=== PATIENT | male | born 1985 | race Caucasian/White ===

== ENCOUNTER 2019-11-02 01:51 | Emergency (ER) | payer SELFPAY | END 2019-11-02 03:54 | disposition home or self-care (01) | LOC: MED 01:51 | DX: R07.9 Chest pain, unspecified (principal) | CPT/HCPCS: 99283 ==

== ENCOUNTER 2021-10-09 23:55 | Emergency (ER) | payer SELFPAY ==
[~2021-10-09] VITALS: Ht 185.4 cm; Wt 116.1 kg
[2021-10-10 00:01] VITALS: BP 165/90
--- NOTE | 2021-10-10 00:06 | NUR ---
PATIENT LOBBY AMBULATORY
[2021-10-10 00:25] VITALS: BP 165/90
--- NOTE | 2021-10-10 00:26 | NUR ---
Patient discharged with v/s stable. Written and verbal after care instructions given and explained. Patient verbalized understanding. Ambulatory with steady gait. All questions addressed prior to discharge. Advised to follow up with PMD.
== END 2021-10-10 00:26 | disposition home or self-care (01) ==
LOC: MED 23:55
DX: F41.9 Anxiety disorder, unspecified (principal); R20.2 Paresthesia of skin; R06.02 Shortness of breath; R07.9 Chest pain, unspecified
CPT/HCPCS: 99282